=== PATIENT | female | born 1975 | race Caucasian/White ===

== ENCOUNTER 2016-08-24 03:41 | Emergency (ER) | payer SELFPAY ==
[~2016-08-24] VITALS: Ht 165.1 cm; Wt 84.0 kg
[~2016-08-24 03:41] MED LIST: ATEN-51 PO; LISI40TA9 PO; MINE3.5O30 RIGHT EYE; PRED20TA PO; VALA10004 PO
[2016-08-24 03:44] VITALS: Ht 165.1 cm; Wt 84.0 kg
[2016-08-24] MEDS ORDERED: SOD CHLORIDE 0.9% 1,000 ML IV STA (04:04)
[2016-08-24] MEDS ORDERED: LEVALBUTEROL (NEB) 1.25 MG/0.5 ML AMP INH STA (04:04)
[2016-08-24] MEDS ORDERED: IPRATROPIUM (NEB) 0.5 MG/2.5 ML AMP NEB STA (04:04)
[2016-08-24] MEDS ORDERED: METHYLPREDNISOLONE 125 MG INJ IV STA (04:04)
[2016-08-24 04:24] LABS: BASOPHIL # 0.1 10^3/ul (0.0-0.1); BASOPHILS % 0.3 % (0.0-2.0); EOSINOPHILS # 0.1 10^3/ul (0.0-0.5); EOSINOPHILS % 0.3 % (0.0-7.0); HEMATOCRIT 43.9 % (37.0-47.0); HEMOGLOBIN 14.6 g/dl (12.0-16.0); LYMPHOCYTES # 8.2 10^3/ul (0.8-2.9); MEAN CORPUSCULAR HGB CONC 33.4 g/dl (32.0-37.0); MEAN CORPUSCULAR VOLUME 89.8 fl (82.0-101.0); MEAN PLATELET VOLUME 7.9 fl (7.4-10.4); MONOCYTE # 1.5 10^3/ul (0.3-0.9); MONOCYTES % 6.9 % (0.0-11.0); NEUTROPHIL # 11.8 10^3/ul (1.6-7.5); NEUTROPHILS % 54.5 % (39.0-77.0); PLATELET COUNT 453 10^3/UL (140-440); RED BLOOD COUNT 4.89 10^6/ul (4.20-5.40); RED CELL DISTRIBUTION WIDTH 13.2 % (11.5-14.5); UNCORRECTED WBC 21.6 10^3/ul (4.8-10.8); WHITE BLOOD COUNT 21.6 10^3/ul (4.8-10.8)
[2016-08-24 04:31] LABS: POTASSIUM 3.1 mmol/L (3.5-5.1)
[2016-08-24 04:33] LABS: CREATININE 0.72 mg/dl (0.44-1.00)
[2016-08-24 04:34] LABS: CALCIUM 9.8 mg/dl (8.4-10.2)
--- NOTE | 2016-08-24 04:48 | RADRPT ---
PROCEDURE: Chest. CLINICAL INDICATION: Chest pain. TECHNIQUE: Single frontal view of the chest was obtained. COMPARISON: 03/01/2016. FINDINGS: The cardiac silhouette is within normal limits. The aortic arch is unremarkable. There is no focal consolidation, vascular congestion or pleural effusion. There is no pneumothorax. IMPRESSION: No evidence for active cardiopulmonary disease. .Tony Sanchez MD, Date Time Electronically viewed and signed by .Tony Sanchez MD, on 08/24/2016 04:47 .T/
[2016-08-24 04:55] LABS: CONDITION 1; LH ANALYZER COMMENTS 1
[2016-08-24] MEDS ORDERED: POTASSIUM CHLORIDE (SR) 20 MEQ TAB PO STA (05:02)
[2016-08-24] MEDS ORDERED: ALBU8.5H3 INH (05:04)
[2016-08-24] MEDS ORDERED: AZIT250T94 PO (05:04)
--- NOTE | 2016-08-24 05:09 | ERD ---
ER Documentation Chief Complaint Date/Time DATE: 08/24/16 TIME: 05:05 Chief Complaint cough/chest congestion x 1 day HPI This a 41-year-old female who is complaining of cough with green productive sputum for the past 2 days. She also has some nasal congestion. She has no shortness of breath no chest pain no fever abdominal pain vomiting or diarrhea. 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 Patient states she just took 2 puffs of her brothers albuterol inhaler right before walking into the emergency room here tonight ROS All systems reviewed and are negative except as per history of present illness. Medications Home Meds Active Scripts Albuterol Sulfate* (Proair HFA*) 8.5 Gm Hfa.aer.ad, 2 PUFF INH Q4, #1 INHALER Prov:MAICOL BELTRAN DO 08/24/16 Azithromycin* (Zithromax*) 250 Mg Tablet, 250 MG PO .ZPACK DIRECTED, #6 TAB TAKE 500 MG (2 TABS) THE FIRST DAY THEN 250 MG (1 TAB) DAYS 2-5 Prov:MAICOL BELTRAN DO 08/24/16 Mineral Oil/Petrolatum,White (ARTIFICIAL TEARS EYE OINT) 3.5 Gm Oint...g., 1 APPLIC RIGHT EYE NEEDED Y for 4x/day, #1 EA Prov:YESICA MCCOY DO 08/18/16 Prednisone* (Prednisone*) 20 Mg Tab, 60 MG PO DAILY for 7 Days, #7 TAB Prov:YESICA MCCOY DO 08/18/16 Valacyclovir HCl (Valtrex) 1,000 Mg Tablet, 1000 MG PO TID for 7 Days, TAB Prov:YESICA MCCOY DO 08/18/16 Reported Medications Atenolol* (Atenolol*) 25 Mg Tablet, 25 MG PO DAILY, #90 09/29/15 Lisinopril* (Lisinopril*) 40 Mg Tablet, 40 MG PO DAILY 09/29/15 Allergies Allergies: Coded Allergies: No Known Drug Allergies (Verified Allergy, Mild, 08/24/16) PMhx/Soc History of Surgery: Yes (GALLBLADDER 02/2010) Anesthesia Reaction: No Hx Neurological Disorder: No Hx Respiratory Disorders: No Hx Cardiac Disorders: Yes (HTN) Hx Psychiatric Problems: No Hx Miscellaneous Medical Probl: Yes (ovarian cyst) Hx Alcohol Use: No Hx Substance Use: No Hx Tobacco Use: No Smoking Status: Never smoker FmHx Family History: No coronary disease Physical Exam Vitals Vital Signs Date Time Temp Pulse Resp B/P Pulse Ox O2 Delivery O2 Flow Rate FiO2 08/24/16 04:40 127 20 96 21 08/24/16 03:44 98.1 20 169/99 99 Physical Exam Const: Well-developed, well-nourished Head: Atraumatic, normocephalic Eyes: Normal Conjunctiva, PERRLA, EOMI, normal sclera, no nystagmus ENT: Normal External Ears, Nose and Mouth, moist mucus membranes. Neck: Full range of motion. No meningismus, no lymphadenopathy. Resp: No increased work of breathing, some slight decreased breath sounds with some scattered rhonchi bilateral Cardio: Tachycardia, no murmurs, S1 S2 present Abd: Soft, non tender x 4, non distended. Normal bowel sounds, no guarding or rebound, no pulsitile abdominal masses or bruits Skin: No petechiae or rashes, no ecchymosis , no maculopapular rash Back: No midline or flank tenderness Ext: No cyanosis, or edema, FROM x 4, normal inspection, neurovascularly intact x 4 Neur: Awake and alert, STR 5/5 x 4, sensation intact x 4, no focal findings, cerebellum intact Psych: Normal Mood and Affect Result Diagram: 08/24/16 0405 08/24/16 0405 Results 24 hrs Laboratory Tests Test 08/24/16 04:05 Anion Gap 17 Basophils # Pending Basophils % Pending Blood Urea Nitrogen 15mg/dl Calcium Level 9.8mg/dl Carbon Dioxide Level 27mmol/L Chloride Level 102mmol/L Creatinine 0.72mg/dl Eosinophils # Pending Eosinophils % Pending Glucose Level 110mg/dl Hematocrit 43.9% Hemoglobin 14.6g/dl Lymphocytes # Pending Lymphocytes % Pending Mean Corpuscular Hemoglobin 30.0pg Mean Corpuscular Hemoglobin Concent 33.4g/dl Mean Corpuscular Volume 89.8fl Mean Platelet Volume 7.9fl Monocytes # Pending Monocytes % Pending Neutrophils # Pending Neutrophils % Pending Nucleated Red Blood Cells # Pending Nucleated Red Blood Cells % Pending Platelet Count 78835^3/UL Potassium Level 3.1mmol/L Red Blood Count 4.8910^6/ul Red Cell Distribution Width 13.2% Sodium Level 143mmol/L White Blood Count 21.610^3/ul Current Medications Medications (Trade) Dose Ordered Sig/Ana Route PRN Reason Start Time Stop Time Status Last Admin Dose Admin Sodium Chloride (NS) 1,000 ml @ 1,000 mls/hr Q1H STAT IV 08/24/16 04:04 08/24/16 05:03 DC 08/24/16 04:23 Ipratropium [place] (Atrovent 0.02% (Neb)) 0.5 mg ONCE STAT NEB 08/24/16 04:04 08/24/16 04:06 DC 08/24/16 04:40 Methylprednisolone Sodium Succinate (Solu-Medrol) 125 mg ONCE STAT IV 08/24/16 04:04 08/24/16 04:06 DC 08/24/16 04:23 Levalbuterol (Xopenex Neb) 1.25 mg ONCE STAT INH 08/24/16 04:04 08/24/16 04:07 DC 08/24/16 04:40 Potassium Chloride (Klor-Con 20) 40 meq ONCE STAT PO 08/24/16 05:02 08/24/16 05:04 DC Procedures/MDM EKG: Rate/Rhythm: Sinus tachycardia heart rate 153 QRS, ST, QT: NORMAL ID, QRS, QT] Impression: Sinus tachycardia PROCEDURE: Chest. CLINICAL INDICATION: Chest pain. TECHNIQUE: Single frontal view of the chest was obtained. COMPARISON: 03/01/2016. FINDINGS: The cardiac silhouette is within normal limits. The aortic arch is unremarkable. There is no focal consolidation, vascular congestion or pleural effusion. There is no pneumothorax. IMPRESSION: No evidence for active cardiopulmonary disease. .Tony Sanchez MD, Date Time Electronically viewed and signed by .Tony Sanchez MD, on 08/24/2016 04:47 .T/ CC: MAICOL BELTRAN DO Patient is elevated white blood count 21.6 and this is due to the fact that she has been taking steroids for the past 7 days. After breathing treatment she says she feels much better. Her heart rate is 120 currently. Her tachycardia is due to the fact that she take 2 puffs of an albuterol inhaler before walking in the door the ER here. We will discharge her with Zithromax and albuterol inhaler as she is currently on steroids already for her diagnosis today of bronchitis Departure Diagnosis: Primary Impression: Bronchitis Condition: Stable Patient Instructions: Bronchitis, Antiobiotic Treatment (Adult) MAICOL BELTRAN DO Aug 24, 2016 05:08
[2016-08-24 05:30] VITALS: BP 148/93; PULSE 107; RESP 16; TEMP 98.9
== END 2016-08-24 05:40 | disposition home or self-care (01) ==
LOC: E/R 03:41
DX: J20.9 Acute bronchitis, unspecified (principal); R40.2252 Coma scale, best verbal response, oriented, at arrival to emergency department; I10 Essential (primary) hypertension; R40.2362 Coma scale, best motor response, obeys commands, at arrival to emergency department; R40.2142 Coma scale, eyes open, spontaneous, at arrival to emergency department
CPT/HCPCS: 71010; 80048; 85025; 93005; 94664; 96374; 99284; J2930; J7030